=== PATIENT | female | born 1985 | race Two or more races ===

== ENCOUNTER 2020-06-26 21:56 | Inpatient (IN) | payer OTHER ==
[~2020-06-26] VITALS: Ht 157.5 cm; Wt 63.0 kg
--- NOTE | 2020-06-26 22:00 | NUR ---
Patient came in wih complaints of right sided weakness, hx of hypertension and diabetes
[2020-06-26] MEDS ORDERED: Labetalol 5mg/ml 20ml vial IV ONE (22:15)
[2020-06-26 22:21] LABS: EOSINOPHILS % (AUTO) 2.1 % (0.0-3.0); HEMATOCRIT 38.3 % (37.0-47.0); HEMOGLOBIN 12.4 G/DL (12.0-16.0); LYMPHOCYTES % (AUTO) 34.6 % (20.0-45.0); MEAN CORPUSCULAR VOLUME 91 FL (80-99); MONOCYTES % (AUTO) 4.4 % (1.0-10.0); PLATELET COUNT 334 K/UL (150-450); RED BLOOD COUNT 4.19 M/UL (4.20-5.40); WHITE BLOOD COUNT 10.2 K/UL (4.8-10.8)
--- NOTE | 2020-06-26 22:30 | NUR ---
ED Nurse Note: blood specimens sent to lab
[2020-06-26 22:34] LABS: ANION GAP 7 mmol/L (5-15); BLOOD UREA NITROGEN 44 mg/dL (7-18); CALCIUM 8.8 MG/DL (8.5-10.1); CARBON DIOXIDE 23 MMOL/L (21-32); CHLORIDE 102 MMOL/L (98-107); CREATININE 2.4 MG/DL (0.55-1.30); INR 0.9 (0.9-1.1); SODIUM 132 MMOL/L (136-145)
[2020-06-26 22:39] LABS: ALANINE AMINOTRANSFERASE 22 U/L (12-78); ALBUMIN 2.3 G/DL (3.4-5.0); ALBUMIN/GLOBULIN RATIO 0.5 (1.0-2.7); ALKALINE PHOSPHATASE 186 U/L (46-116); ASPARTATE AMINO TRANSFERASE 17 U/L (15-37); BILIRUBIN,TOTAL 0.1 MG/DL (0.2-1.0); CHOLESTEROL 383 MG/DL (< 200); HDL CHOLESTEROL 78 MG/DL (40-60); TRIGLYCERIDES 371 MG/DL (30-150)
--- NOTE | 2020-06-26 22:44 | Diagnostic Imaging Report ---
EXAM: CT Head Without Intravenous Contrast CLINICAL HISTORY: WEAK TECHNIQUE: Axial computed tomography images of the head/brain without intravenous contrast. CTDI is 53.4 mGy and DLP is 885.2 mGy-cm. One or more of the following dose reduction techniques were used: automated exposure control, adjustment of the mA and/or kV according to patient size, use of iterative reconstruction technique. COMPARISON: None. FINDINGS: Brain: Unremarkable. No hemorrhage. No significant white matter disease. No edema. Ventricles: Unremarkable. No ventriculomegaly. Bones/joints: Unremarkable. No acute fracture. Soft tissues: Unremarkable. Sinuses: Unremarkable as visualized. No acute sinusitis. Mastoid air cells: Unremarkable as visualized. No mastoid effusion. IMPRESSION: No acute intracranial process.
[2020-06-26 22:57] VITALS: BP 138/76
[2020-06-26] MEDS ORDERED: Aspirin Baby 81mg ORAL ONE (23:00)
--- NOTE | 2020-06-27 00:16 | Emergency Room Report ---
History of Present Illness General Chief Complaint: Stroke Symptoms Source: Patient Present Illness HPI Patient is a 35-year-old female presents for increased right-sided facial droop and facial numbness. Onset of symptoms earlier in the morning. Approximately 10 AM. Onset occurred approximately 12 hours prior to arrival. Prior history of diabetes and hypertension. Previous CVA in the past. Reports having been noncompliant with her antihypertensives. Denies any extremity weakness. Patient had been able to ambulate. 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 COVID-19 Screening: Negative COVID-19 Patient History Past Medical History: see triage record, DM, CVA/TIA Now: No Reviewed Nursing Documentation: PMH: Agreed; PSxH: Agreed Nursing Documentation-PMH Hx Hypertension: Yes - stroke 2016 Hx Diabetes: Yes Review of Systems All Other Systems: negative except mentioned in HPI Physical Exam Vital Signs Date Time Temp Pulse Resp B/P (MAP) Pulse Ox O2 Delivery O2 Flow Rate FiO2 06/26/20 22:03 98.4 125 20 214/113 (146) 100 Sp02 EP Interpretation: reviewed, normal General Appearance: normal inspection, well appearing, no apparent distress, alert, GCS 15, non-toxic Head: atraumatic ENT: normal ENT inspection, hearing grossly normal, normal voice Neck: normal inspection, full range of motion, supple, no bony tend Respiratory: normal inspection, lungs clear, normal breath sounds, no respiratory distress, no retraction, no wheezing Cardiovascular #1: regular rate, rhythm, no edema Gastrointestinal: normal inspection, normal bowel sounds, non tender, soft, no guarding, no hernia Genitourinary: no CVA tenderness Musculoskeletal: normal inspection, back normal, normal range of motion Neurologic: alert, motor strength/tone normal, religion professor III-XII nml as tested, oriented x3, responsive, speech normal, normal inspection, other - Facial motor weakness, some slight dysarthria. Psychiatric: normal inspection, judgement/insight normal, mood/affect normal Medical Decision Making Diagnostic Impression: Primary Impression: Hypertensive crisis Additional Impression: Transient ischemic attack ER Course She presents for increased facial weakness. Differential diagnosis include was not limited to hypertensive crisis, encephalopathy, CVA, Dorman's palsy among others. Because of complexity of patient's case laboratory tests and imaging studies were ordered. CT imaging of the head read by radiology showed no evidence of acute intracranial hemorrhage or CVA. Patient's blood pressure was noted to be initially markedly hypertensive. She was given IV labetalol with improvement in her blood pressure. She had resolution of facial symptoms after blood pressure was improved. Laboratory testing was notable for marked hyperglycemia. Patient was given aspirin. Dr. Silvana Brannon was contacted for inpatient management Labs Test 06/26/20 22:08 White Blood Count 10.2 K/UL (4.8-10.8) Red Blood Count 4.19 M/UL (4.20-5.40) Hemoglobin 12.4 G/DL (12.0-16.0) Hematocrit 38.3 % (37.0-47.0) Mean Corpuscular Volume 91 FL (80-99) Mean Corpuscular Hemoglobin 29.6 PG (27.0-31.0) Mean Corpuscular Hemoglobin Concent 32.3 G/DL (32.0-36.0) Red Cell Distribution Width 12.0 % (11.6-14.8) Platelet Count 334 K/UL (150-450) Mean Platelet Volume 10.3 FL (6.5-10.1) Neutrophils (%) (Auto) 58.0 % (45.0-75.0) Lymphocytes (%) (Auto) 34.6 % (20.0-45.0) Monocytes (%) (Auto) 4.4 % (1.0-10.0) Eosinophils (%) (Auto) 2.1 % (0.0-3.0) Basophils (%) (Auto) 1.0 % (0.0-2.0) Prothrombin Time 9.9 SEC (9.30-11.50) Prothromb Time International Ratio 0.9 (0.9-1.1) Activated Partial Thromboplast Time 26 SEC (23-33) Sodium Level 132 MMOL/L (136-145) Potassium Level 4.0 MMOL/L (3.5-5.1) Chloride Level 102 MMOL/L (98-107) Carbon Dioxide Level 23 MMOL/L (21-32) Anion Gap 7 mmol/L (5-15) Blood Urea Nitrogen 44 mg/dL (7-18) Creatinine 2.4 MG/DL (0.55-1.30) Estimat Glomerular Filtration Rate 23.1 mL/min (>60) Glucose Level 472 MG/DL (74-106) Calcium Level 8.8 MG/DL (8.5-10.1) Total Bilirubin 0.1 MG/DL (0.2-1.0) Aspartate Amino Transf (AST/SGOT) 17 U/L (15-37) Alanine Aminotransferase (ALT/SGPT) 22 U/L (12-78) Alkaline Phosphatase 186 U/L (46-116) Troponin I 0.000 ng/mL (0.000-0.056) Total Protein 7.1 G/DL (6.4-8.2) Albumin 2.3 G/DL (3.4-5.0) Globulin 4.8 g/dL Albumin/Globulin Ratio 0.5 (1.0-2.7) Triglycerides Level 371 MG/DL (30-150) Cholesterol Level 383 MG/DL (< 200) LDL Cholesterol 245 mg/dL (<100) HDL Cholesterol 78 MG/DL (40-60) Cholesterol/HDL Ratio 4.9 (3.3-4.4) EKG Diagnostic Results Rate: normal Rhythm: NSR ST Segments: no acute changes Last Vital Signs Date Time Temp Pulse Resp B/P (MAP) Pulse Ox O2 Delivery O2 Flow Rate FiO2 06/26/20 22:57 98.4 100 20 138/76 100 Status: improved Disposition: ADMITTED INPATIENT Condition: Stable Referrals: TERENCE PALM,REFERRING (PCP) Nathaniel De Jesus MD Jun 27, 2020 00:16
--- NOTE | 2020-06-27 00:30 | NUR ---
ED Nurse Note: Urine sent to lab
[2020-06-27 00:43] LABS: APPEARANCE,URINE CLEAR; BILIRUBIN, URINE NEGATIVE (NEGATIVE); COLOR,URINE PALE YELLOW; GLUCOSE, URINE (UA) 4+ (NEGATIVE); KETONES,URINE NEGATIVE (NEGATIVE); LEUKOCYTE ESTERASE ,URINE NEGATIVE (NEGATIVE); NITRITE,URINE NEGATIVE (NEGATIVE); PH,URINE 6.5 (4.5-8.0); PROTEIN,URINE 4+ (NEGATIVE); UROBILINOGEN,URINE NORMAL MG/DL (0.0-1.0)
--- NOTE | 2020-06-27 00:43 | NUR ---
TRANSFER TO FLOOR: Patient transferred to med surg/tele as ordered, per MD. Report given to Melanie MACIAS. Belongings left at patient's bedside, declined to send to safe
--- NOTE | 2020-06-27 01:15 | NUR ---
NURSE NOTES: Received report from GILBERTO Quintero. Pt is A/O x4 and verbally responsive. No SOB or acute distress notes. Pt has no pain at this time. Pt is ambulatory with steady gait. Pt states she feels better but a has a little nausea but declined medication. Pt's HX gone over and recorded. Inventory gone over with pt and asked pt to have money sent down to safe and declines states she will keep in her pocket with her DL and insurance card. Pt BP is stable at this time and will continue to monitor. Admitting orders obtained from Dr. Machado. Will continue plan of care.
--- NOTE | 2020-06-27 01:20 | NUR ---
NURSE NOTES: Pt placed on ekg monitor which shows ST of 107. Dr. Machado notified and was told if it got higher to call Dr. Hernandez which he added to the case.
[2020-06-27 04:00] VITALS: BP 113/75
[2020-06-27] MEDS: NovoLOG Insulin Flexpen SUBQ SCH ×8 (05:46→20:55)
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
--- NOTE | 2020-06-27 06:46 | NUR ---
NURSE HAND-OFF REPORT: Important Events on Shift:New Admit HTN Crisis. St evaluation today. Patient Status: Stable Diet: CCHO LOW Pending Orders: Pending Results/Labs: Pending MD notification: Latest Vital Signs: Temperature 98.6 , Pulse 96 , B/P 113 /75 , Respiratory Rate 20 , O2 SAT 98 , , O2 Flow Rate . Vital Sign Comment: EKG Rhythm: Sinus Tachycardia Rhythm change?: N MD Notified?: -Dr. Jeannette MCKEON Response: Latest Bell Fall Score: 20 Fall Risk: Low Risk Safety Measures: Call light Within Reach, Bed Alarm Zone 2, Side Rails Side Rails x2, Bed position Low and Locked. Fall Precautions: Patient Fall Education Report given to Adry.
--- NOTE | 2020-06-27 07:49 | NUR ---
NURSE NOTES: Report received from Melanie MACIAS. Patient seen on rounds, awake and up in bed eating breakfast. No c/o chest pain, not in distress. PIV on right AC patent and intact. Pt is ambulatory and continent. Bed low and locked, siderails up x2, call light placed within reach and instructed to call nurse for assistance. Will continue to monitor.
[2020-06-27 08:00] VITALS: BP 126/69
[2020-06-27] MEDS: Levemir Flexpen SUBQ SCH (08:58)
--- NOTE | 2020-06-27 11:00 | NUR ---
INSURANCE CLINICALS/REVIEW FAXED TO Deya PALM # [phone] fax#[phone]
[2020-06-27 11:01] LABS: ALANINE AMINOTRANSFERASE 18 U/L (12-78); ALBUMIN 1.9 G/DL (3.4-5.0); ALBUMIN/GLOBULIN RATIO 0.4 (1.0-2.7); ALKALINE PHOSPHATASE 155 U/L (46-116); ANION GAP 10 mmol/L (5-15); ASPARTATE AMINO TRANSFERASE 14 U/L (15-37); BILIRUBIN,TOTAL 0.1 MG/DL (0.2-1.0); BLOOD UREA NITROGEN 45 mg/dL (7-18); CALCIUM 8.1 MG/DL (8.5-10.1); CARBON DIOXIDE 21 MMOL/L (21-32); CHLORIDE 106 MMOL/L (98-107); CREATININE 1.9 MG/DL (0.55-1.30); GAMMA GLUTAMYL TRANSPEPTIDASE 113 U/L (5-85); PHOSPHORUS 2.7 MG/DL (2.5-4.9); POTASSIUM 4.2 MMOL/L (3.5-5.1); SODIUM 137 MMOL/L (136-145)
--- NOTE | 2020-06-27 11:11 | NUR ---
Speech Pathology Note (Bedside Dysphagia Evaluation) Brief Note: Ms. Torres is a 35 year old female history of TIA in 2016, HTN and DM was taken to ED on 06/26/2020 around 10 PM for acute onset of right side facial weakness and numbness and lingual numbness. The symptoms started around 10 AM on the same day. On arrival, She was found to be hypertensive (214/113) and tachycardia 125. The labs were remarkable for leukocytosis 10.2k, BUN/Creatine 44/2.4 Glucose 472, insetting of history of DM and HTN. CT head was negative for acute findings. The decision was made to admit for further work up and BP and sugar management. Findings: Ms. Torres is alert. She is oriented 4. She follows commands, and able to turn her head right to left and left to right. She was able to read clock on the wall. She was able to count 1-21 forward and back word. Her speech is clear. The right side of lower facial is noted to be weak. Her lingual is midline. She stated that she felt tongue thickness. The mucosa is clear and moist. She denied dysphagia, voice changes or speech changes. She denied nausea, vomiting or vertigo. Given her water with a straw, she demonstrated functional swallow. Interpretation: 1. Functional swallow 2. Functional speech and cognition 3. Functional voice Plan: 1. Regular diet and thin liquid Signed off from Speech/Swallow Service at this time. Roxy Monroe
--- NOTE | 2020-06-27 11:31 | Consultation ---
Consult Note Consult Note I am asked to evaluate the patient at the request of Dr. Brannon for renal failure Chief Complaint: Stroke Symptoms Patient is a 35-year-old female presents for increased right-sided facial droop and facial numbness. Onset of symptoms earlier in the morning. Approximately 10 AM. Onset occurred approximately 12 hours prior to arrival. Prior history of diabetes and hypertension. Previous CVA in the past. Reports having been noncompliant with her antihypertensives. Denies any extremity weakness. Patient had been able to ambulate. 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 HEAD AND NECK: Showed no JVD. LUNGS: Clear. CARDIOVASCULAR: Regular S1 and S2 with no gallop. ABDOMEN: Soft. EXTREMITIES: No pitting edema. LABORATORY AND DIAGNOSTIC DATA: EKG shows sinus tachycardia, rate of 104. Her labs show white count of 10.2, hemoglobin 12.4, hematocrit 38.3, and platelet count of 334. Sodium 137, potassium 4.2, BUN of 45, creatinine 1.9. Initial BUN was 44 and creatinine 2.5, glucose of 373. Troponin is negative. Triglyceride is 371. Cholesterol is 383 with LDL of 245. . Assessment/Plan Acute on chronic renal failure Diabetic nephropathy Hypertensive crisis Transient ischemic attack Hyperlipemia Slow hydration Kidney ultrasound Blood pressure medication Keep the blood sugar in check Lipitor, fish oil Monitor renal parameters and electrolytes Aspirin eSan Hare MD Jun 27, 2020 11:31
[2020-06-27 12:00] VITALS: BP 147/80
[2020-06-27] MEDS: Docusate 100mg cap ORAL SCH ×2 (12:12→18:00)
[2020-06-27] MEDS: Metoprolol Tartrate 12.5mg TAB ORAL SCH ×2 (12:12→20:52)
[2020-06-27] MEDS ORDERED: Varibar Honey 250ml MC PRN (14:15)
[2020-06-27] MEDS ORDERED: Varibar Pudding 230ml MC PRN (14:15)
[2020-06-27] MEDS ORDERED: Varibar Thin Liquid powder 148gm MC PRN (14:15)
[2020-06-27] MEDS ORDERED: Varibar Nectar 240ml MC PRN (14:15)
[2020-06-27] MEDS ORDERED: Gadavist 7.5mMol/7.5ml vial IV PRN (14:30)
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
--- NOTE | 2020-06-27 14:46 | Cardiac Electrophysiology PN ---
Subjective Subjective [id number] Objective Last 24 Hour Vital Signs Date Time Temp Pulse Resp B/P (MAP) Pulse Ox O2 Delivery O2 Flow Rate FiO2 06/27/20 12:12 100 147/80 06/27/20 09:00 Room Air 06/27/20 08:00 106 06/27/20 08:00 99.9 107 18 126/69 (88) 99 06/27/20 04:00 98.6 96 20 113/75 (88) 98 06/27/20 01:15 Room Air 06/27/20 01:15 104 06/27/20 00:46 98.4 100 20 134/72 100 06/26/20 22:57 98.4 100 20 138/76 100 06/26/20 22:23 125 214/113 06/26/20 22:03 98.4 125 20 214/113 (146) 100 Intake and Output 06/26/20 06/27/20 19:00 07:00 Intake Total 560 ml Balance 560 ml Intake Oral 560 ml # Voids 3 # Bowel Movements 1 Laboratory Tests Test 06/26/20 22:08 06/27/20 00:24 06/27/20 09:50 White Blood Count 10.2 K/UL (4.8-10.8) Red Blood Count 4.19 M/UL (4.20-5.40) L Hemoglobin 12.4 G/DL (12.0-16.0) Hematocrit 38.3 % (37.0-47.0) Mean Corpuscular Volume 91 FL (80-99) Mean Corpuscular Hemoglobin 29.6 PG (27.0-31.0) Mean Corpuscular Hemoglobin Concent 32.3 G/DL (32.0-36.0) Red Cell Distribution Width 12.0 % (11.6-14.8) Platelet Count 334 K/UL (150-450) Mean Platelet Volume 10.3 FL (6.5-10.1) H Neutrophils (%) (Auto) 58.0 % (45.0-75.0) Lymphocytes (%) (Auto) 34.6 % (20.0-45.0) Monocytes (%) (Auto) 4.4 % (1.0-10.0) Eosinophils (%) (Auto) 2.1 % (0.0-3.0) Basophils (%) (Auto) 1.0 % (0.0-2.0) Prothrombin Time 9.9 SEC (9.30-11.50) Prothromb Time International Ratio 0.9 (0.9-1.1) Activated Partial Thromboplast Time 26 SEC (23-33) Sodium Level 132 MMOL/L (136-145) L 137 MMOL/L (136-145) Potassium Level 4.0 MMOL/L (3.5-5.1) 4.2 MMOL/L (3.5-5.1) Chloride Level 102 MMOL/L (98-107) 106 MMOL/L (98-107) Carbon Dioxide Level 23 MMOL/L (21-32) 21 MMOL/L (21-32) Anion Gap 7 mmol/L (5-15) 10 mmol/L (5-15) Blood Urea Nitrogen 44 mg/dL (7-18) H 45 mg/dL (7-18) H Creatinine 2.4 MG/DL (0.55-1.30) H 1.9 MG/DL (0.55-1.30) H Estimat Glomerular Filtration Rate 23.1 mL/min (>60) 30.3 mL/min (>60) Glucose Level 472 MG/DL (74-106) H 373 MG/DL (74-106) #H Calcium Level 8.8 MG/DL (8.5-10.1) 8.1 MG/DL (8.5-10.1) L Total Bilirubin 0.1 MG/DL (0.2-1.0) L 0.1 MG/DL (0.2-1.0) L Aspartate Amino Transf (AST/SGOT) 17 U/L (15-37) 14 U/L (15-37) L Alanine Aminotransferase (ALT/SGPT) 22 U/L (12-78) 18 U/L (12-78) Alkaline Phosphatase 186 U/L (46-116) H 155 U/L (46-116) H Troponin I 0.000 ng/mL (0.000-0.056) Total Protein 7.1 G/DL (6.4-8.2) 6.2 G/DL (6.4-8.2) L Albumin 2.3 G/DL (3.4-5.0) L 1.9 G/DL (3.4-5.0) L Globulin 4.8 g/dL 4.3 g/dL Albumin/Globulin Ratio 0.5 (1.0-2.7) L 0.4 (1.0-2.7) L Triglycerides Level 371 MG/DL (30-150) H Cholesterol Level 383 MG/DL (< 200) H LDL Cholesterol 245 mg/dL (<100) H HDL Cholesterol 78 MG/DL (40-60) H Cholesterol/HDL Ratio 4.9 (3.3-4.4) H Urine Color Pale yellow Urine Appearance Clear Urine pH 6.5 (4.5-8.0) Urine Specific [place] 1.005 (1.005-1.035) Urine Protein 4+ (NEGATIVE) H Urine Glucose (UA) 4+ (NEGATIVE) H Urine Ketones Negative (NEGATIVE) Urine Blood 2+ (NEGATIVE) H Urine Nitrite Negative (NEGATIVE) Urine Bilirubin Negative (NEGATIVE) Urine Urobilinogen Normal MG/DL (0.0-1.0) Urine Leukocyte Esterase Negative (NEGATIVE) Urine RBC 2-4 /HPF (0 - 2) H Urine WBC 0-2 /HPF (0 - 2) Urine Squamous Epithelial Cells Few /LPF (NONE/OCC) Urine Bacteria None /HPF (NONE) Urine HCG, Qualitative Negative (NEGATIVE) Urine Opiates Screen Negative (NEGATIVE) Urine Barbiturates Screen Negative (NEGATIVE) Phencyclidine (PCP) Screen Negative (NEGATIVE) Urine Amphetamines Screen Negative (NEGATIVE) Urine Benzodiazepines Screen Negative (NEGATIVE) Urine Cocaine Screen Negative (NEGATIVE) Urine Marijuana (THC) Screen Negative (NEGATIVE) Hemoglobin A1c 11.4 % (4.3-6.0) H Uric Acid 5.3 MG/DL (2.6-7.2) Phosphorus Level 2.7 MG/DL (2.5-4.9) Magnesium Level 2.1 MG/DL (1.8-2.4) Gamma Glutamyl Transpeptidase 113 U/L (5-85) H C-Reactive Protein, Quantitative < 0.4 mg/dL (0.00-0.90) Pro-B-Type Natriuretic Peptide 146 pg/mL (0-125) H Thyroid Stimulating Hormone (TSH) 2.022 uiU/mL (0.358-3.740) Nestor Hernandez MD Jun 27, 2020 14:46
--- NOTE | 2020-06-27 14:50 | NUR ---
NURSE NOTES: Patient transferred down to radiology for MRI via wheelchair in stable condition.
--- NOTE | 2020-06-27 14:58 | Diagnostic Imaging Report ---
Indication: Acute renal failure Technique: Grayscale and duplex images of the kidneys, retroperitoneum, and bladder were obtained. Comparison: none Findings: Right kidney measures 9.7 cm in length. Left kidney measures 10.4 cm in length. Both kidneys demonstrate normal echogenicity. No hydronephrosis. No focal abnormality. Normal inferior vena cava. Bladder is normal. Impression: negative.
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
--- NOTE | 2020-06-27 19:10 | Diagnostic Imaging Report ---
Indications: Right facial numbness, right arm and leg weakness x3 days Technique: 3D [id number] images obtained through the [place] [facility] [place]. MIP reconstructions were generated in multiple rotational projections Comparison: Brain MRI performed at same time, CT brain 06/26/2020 Findings: Codominant bilateral vertebral arteries. Patent bilateral PICAs. Patent bilateral AICAs. 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 Patent bilateral superior cerebellar arteries. Patent nonstenotic bilateral posterior cerebral arteries. Small caliber patent posterior to indicating arteries are demonstrated. Patent nonstenotic bilateral distal internal carotid arteries. Patent nonstenotic bilateral anterior cerebral arteries. Patent nonstenotic bilateral middle cerebral arteries and proximal branches. No evidence of aneurysm or vascular malformation. Impression: Negative for evidence of proximal intracranial cerebrovascular insufficiency
--- NOTE | 2020-06-27 19:12 | NUR ---
NURSE NOTES: Received report from Adry MACIAS. Pt is A/O x4 and verbally responsive. No SOB or acute distress notes. Pt has no pain at this time. Pt is ambulatory with steady gait. No SOB or acute distress noted. No pain noted. Pt has IV site on RAC 20G which is running NS @ 50cc/hr. Bed in lowest position and locked with side rails x2. Call light placed within reach. Will continue plan of care.
--- NOTE | 2020-06-27 19:15 | Diagnostic Imaging Report ---
Indication: Reason For Exam: CVA Technique: sagittal T1 fast spin echo, axial T1 and T2 FLAIR PROPELLER, axial T2 FS PROPELLER, T2* GRE, axial diffusion weighted images, post contrast axial and coronal T1 FLAIR PROPELLER images. ADC and exponential ADC maps generated Comparison: Brain CT 06/26/2020 Findings: There is a prominent perivascular space versus tiny lacunar infarct in the genu of the right internal capsule.. No abnormal areas of restricted diffusion to suggest acute infarction. No acute hemorrhage or edema. No mass effect nor midline shift. No abnormal contrast enhancement. Normal size ventricles and extra axial CSF spaces. Visualized orbits and sinuses are unremarkable. . Impression: Negative for acute intracranial bleed, mass effect, acute infarct, or contrast enhancing lesion Prominent perivascular space versus old lacunar infarct in the genu of the right internal capsule
--- NOTE | 2020-06-27 19:20 | Diagnostic Imaging Report ---
Indication: Right facial numbness, right arm and leg weakness x3 days Technique: Axial 2-D [id number] images were obtained through the neck. Subsequently, coronal tricks acquisitions were obtained in multiple phases after IV administration of gadolinium contrast. 3-D MIP reconstructions were generated on an integrated workstation. Comparison: none Findings: Patent nonstenotic right brachiocephalic, common carotid, proximal internal carotid arteries. Patent nonstenotic right proximal subclavian, right vertebral, left proximal subclavian and left vertebral arteries. Patent nonstenotic left common and internal carotid arteries. Impression: Negative for evidence of significant extracranial cerebrovascular insufficiency Mild stenosis: Less than 50% diameter Moderate stenosis: 50-69% diameter Severe stenosis: 70+% diameter All stenosis measurements are based on NASCET criteria, using normal distal vessel diameter as the denominator
--- NOTE | 2020-06-27 19:32 | NUR ---
NURSE HAND-OFF REPORT: Important Events on Shift: Renal ultrasound, MRI brain, MRA neck/head done; Vduplex done; BP meds started Patient Status: Stable Diet: CCHO low Pending Orders: N Pending Results/Labs: Labs in AM Pending MD notification: N Latest Vital Signs: Temperature 99.1 , Pulse 100 , B/P 147 /80 , Respiratory Rate 20 , O2 SAT 99 , , O2 Flow Rate . Vital Sign Comment: EKG Rhythm: Sinus Tachycardia Rhythm change?: N MD Notified?: -Dr. Jeannette MCKEON Response: Latest Bell Fall Score: 20 Fall Risk: Low Risk Safety Measures: Call light Within Reach, Bed Alarm Zone 2, Side Rails Side Rails x2, Bed position Low and Locked. Fall Precautions: Patient Fall Education Report given to Melanie MACIAS.
[2020-06-27 20:00] VITALS: BP 139/84
[2020-06-27] MEDS: Atorvastatin 80mg tab ORAL SCH (20:52)
[2020-06-27] MEDS: Acetaminophen 500mg (ES) tab ORAL PRN (20:59)
[2020-06-27] MEDS ORDERED: Atorvastatin 20mg tab ORAL SCH (21:00)
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
[2020-06-28] VITALS: BP 140/78
[2020-06-28 04:00] VITALS: BP 124/78
[2020-06-28] MEDS: NovoLOG Insulin Flexpen SUBQ SCH ×6 (05:46→20:30)
--- NOTE | 2020-06-28 07:23 | NUR ---
CASE MANAGEMENT:REVIEW 06/28/20 SI: ACCELERATED HYPERTENSION. TIA 97.9 90 20 124/78 97% ON RA IS: IVF@0/HR ASA PO QD NORVASC PO QD LIPITOR PO QHS LOPRESSOR PO Q12 : TELEMETRY STATUS DCP: FROM HOME
--- NOTE | 2020-06-28 07:27 | NUR ---
DISCHARGE PLANNING PLAN IS FOR PATIENT TO RETURN HOME WILL NEED PRESCRIPTIONS FROM DR DUENAS
--- NOTE | 2020-06-28 07:31 | NUR ---
NURSE HAND-OFF REPORT: Important Events on Shift: Controlling BS and BP Patient Status: Stable Diet: CCHO LOw Pending Orders: Pending Results/Labs: Pending MD notification: Latest Vital Signs: Temperature 97.9 , Pulse 91 , B/P 124 /78 , Respiratory Rate 20 , O2 SAT 97 , , O2 Flow Rate . Vital Sign Comment: EKG Rhythm: Sinus Rhythm Rhythm change?: N MD Notified?: -Dr. Jeannette MCKEON Response: Latest Bell Fall Score: 20 Fall Risk: Low Risk Safety Measures: Call light Within Reach, Bed Alarm Zone 2, Side Rails Side Rails x2, Bed position Low and Locked. Fall Precautions: Patient Fall Education Report given to Olena.
--- NOTE | 2020-06-28 07:57 | NUR ---
NURSE NOTES: Received patient report from GILBERTO Navarro. Patient is AO x4 awake and able to make needs known. Patient shows no signs of distress or pain at the time. IV is intact and patent. There are no signs of erythema, infiltration, or bleeding. Patient is on room air and shows no signs of respiratory distress. Bed is in the lowest position, call light is within reach, side rails up x3. Will continue to monitor.
[2020-06-28 08:00] VITALS: BP 148/92
--- NOTE | 2020-06-28 09:11 | NUR ---
RD ASSESSMENT & RECOMMENDATIONS SEE CARE ACTIVITY FOR COMPLETE ASSESSMENT DAILY ESTIMATED NEEDS: Needs based on Diabetes, 51kg abw 25-30 kcals/kg 1686-5730 total kcals 1-1.3 g protein/kg 51-66 g total protein 25-30 mL/kg 8002-2431 total fluid mLs NUTRITION DIAGNOSIS: Altered nutrition related lab values R/T uncontrolled diabetes, accelerated HTN, altered lipid metabolism as evidenced by elev A1C 11.4, elev POC glu (238 256 238 353), elev BP (214/113 -> 124/78), elev triglyceride (371), elev cholesterol (383), elev LDL (245). CURRENT DIET:CCHO LOW PO DIET RECOMMENDATIONS: CCHO LOW, CARDIAC ADDITIONAL RECOMMENDATIONS: * Standing wt for accurate CBW * Monitor BGs closely, need for insulin re-adjustment (POC glu 200's-300's) * Diet education on diabetes provided * GERD diet education provided as well per pt request * Diet change as above (add Cardiac to diet-> low na, low fat, low cholest)
[2020-06-28] MEDS: Docusate 100mg cap ORAL SCH ×3 (09:25→17:53)
[2020-06-28] MEDS: Metoprolol Tartrate 12.5mg TAB ORAL SCH ×2 (09:26→20:21)
[2020-06-28] MEDS: Aspirin Baby 81mg ORAL SCH (09:26)
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
[2020-06-28] MEDS: Levemir Flexpen SUBQ SCH (09:33)
--- NOTE | 2020-06-28 10:20 | NUR ---
INSURANCE CLINICALS/REVIEW FAXED TO [facility]M # [phone] fax#[phone]
[2020-06-28 12:00] VITALS: BP 164/91
--- NOTE | 2020-06-28 12:03 | NUR ---
NURSE NOTES: Patients BP was 164/ 91 there are no PRN medications ordered. Let Dr. Hernandez know, awaiting response.
--- NOTE | 2020-06-28 12:13 | Nephrology Progress Note ---
Assessment/Plan Problem List: (1) Renal failure (ARF), acute on chronic (2) Diabetic nephropathy (3) Hypertensive kidney disease (4) Hyperlipemia Assessment Acute on chronic renal failure Diabetic nephropathy Hypertensive crisis Transient ischemic attack Hyperlipemia Plan June 28: Blood pressure better controlled. No CHEM panel today. Will check lab tomorrow. Continue per consultants. Slow hydration Kidney ultrasound Blood pressure medication Keep the blood sugar in check Lipitor, fish oil Monitor renal parameters and electrolytes Aspirin Subjective ROS Limited/Unobtainable: No Constitutional: Reports: malaise Objective Objective Last 24 Hour Vital Signs Date Time Temp Pulse Resp B/P (MAP) Pulse Ox O2 Delivery O2 Flow Rate FiO2 06/28/20 12:00 97.7 91 19 164/91 (115) 98 06/28/20 09:26 104 148/92 06/28/20 09:26 104 148/92 06/28/20 09:00 Room Air 06/28/20 08:00 107 06/28/20 08:00 97.9 104 18 148/92 (110) 96 06/28/20 04:00 97.9 91 20 124/78 (93) 97 06/28/20 04:00 90 06/28/20 00:00 85 06/28/20 00:00 97.5 85 20 140/78 (98) 98 06/27/20 21:00 Room Air 06/27/20 20:52 102 150/82 06/27/20 20:00 100 06/27/20 20:00 98.2 100 20 139/84 (102) 99 Intake and Output 06/27/20 06/28/20 19:00 07:00 Intake Total 450 ml 480 ml Balance 450 ml 480 ml Intake Oral 450 ml 480 ml # Voids 2 2 Current Medications Medications (Trade) Dose Ordered Sig/Augustine Route PRN Reason Start Time Stop Time Status Last Admin Dose Admin Acetaminophen (Tylenol) 500 mg Q4H PRN ORAL Mild Pain (Pain Scale 1-3) 06/27/20 01:30 07/27/20 01:29 06/27/20 20:59 Amlodipine Besylate (Norvasc) 5 mg DAILY ORAL 06/28/20 09:00 07/28/20 08:59 06/28/20 09:26 Aspirin (ASA) 81 mg DAILY ORAL 06/28/20 09:00 08/12/20 08:59 06/28/20 09:26 Atorvastatin Calcium (Lipitor) 80 mg BEDTIME ORAL 06/27/20 21:00 09/25/20 20:59 06/27/20 20:52 Barium Sulfate (Varibar Honey) 250 ml NOW PRN MC RAD 06/27/20 14:15 06/30/20 14:06 Barium Sulfate (Varibar Arroyo) 240 ml NOW PRN MC RAD 06/27/20 14:15 06/30/20 14:06 Barium Sulfate (Varibar Pudding) 230 ml NOW PRN MC RAD 06/27/20 14:15 06/30/20 14:06 Barium Sulfate (Varibar Thin Liquid powder) 148 gm NOW PRN MC RAD 06/27/20 14:15 06/30/20 14:06 Clonidine HCl (Catapres Tab) 0.1 mg Q2H PRN ORAL For High Blood Pressure 06/28/20 13:15 09/26/20 13:14 Dextrose (Dextrose 50%) 25 ml Q30M PRN IV Hypoglycemia 06/27/20 06:30 09/25/20 06:29 Dextrose (Dextrose 50%) 50 ml Q30M PRN IV Hypoglycemia 06/27/20 06:30 09/25/20 06:29 Docusate Sodium (Colace) 100 mg THREE TIMES A DAY ORAL 06/27/20 13:00 07/27/20 12:59 06/28/20 13:20 Fish Oil (Fish Oil) 1,000 mg BID ORAL 06/27/20 18:00 07/27/20 17:59 06/28/20 09:25 Gadobutrol (Gadavist) 7.5 mmol NOW PRN IV Radiology Procedure 06/27/20 14:30 07/01/20 14:29 Insulin Aspart (NovoLOG) BEFORE MEALS AND HS SUBQ 06/27/20 06:30 09/25/20 06:29 06/28/20 11:53 Insulin Aspart (NovoLOG) 5 units NOVOTIAC SUBQ 06/27/20 06:30 09/25/20 06:29 06/28/20 11:54 Insulin Detemir (Levemir) 15 units DAILY SUBQ 06/27/20 09:00 09/25/20 08:59 06/28/20 09:33 Metoprolol Tartrate (Lopressor) 12.5 mg Q12HR ORAL 06/27/20 11:45 09/25/20 11:44 06/28/20 09:26 Pantoprazole (Protonix) 40 mg EVERY 12 HOURS ORAL 06/27/20 21:00 07/27/20 20:59 06/28/20 09:26 Sodium Chloride 1,000 ml @ 50 mls/hr Q20H IV 06/27/20 11:45 07/27/20 11:44 06/28/20 09:25 Laboratory Tests 06/28/20 09:15: Erythrocyte Sedimentation Rate 99H, Troponin I 0.000, Pro-B-Type Natriuretic Peptide 141H, Anti-Nuclear Antibody Screen [Pending] Height (Feet): 5 Height (Inches): 2.00 Weight (Pounds): 139 General Appearance: no apparent distress, other - Feels better Cardiovascular: tachycardia Respiratory/Chest: decreased breath sounds Abdomen: distended Sean Hare MD Jun 28, 2020 12:13
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
--- NOTE | 2020-06-28 15:09 | Diagnostic Imaging Report ---
Indication: Bilateral leg pain Technique: Grayscale and duplex images of the bilateral lower extremity veins Comparison: none Findings: Bilaterally, grayscale and duplex images demonstrate no evidence of intraluminal thrombus. Normal phasic Doppler waveforms, demonstrating normal augmentation response and no evidence of valvular insufficiency. Greater saphenous vein(s) and tibial veins are patent. Normal compressibility. Impression: Negative for evidence of lower extremity deep venous thrombosis bilaterally
[2020-06-28 16:00] VITALS: BP 126/80
--- NOTE | 2020-06-28 18:58 | NUR ---
NURSE HAND-OFF REPORT: Important Events on Shift:[Monitor BP and blood glucose. ] Patient Status: [Full code] Diet: [CCHO Low] Pending Orders: [] Pending Results/Labs:[] Pending MD notification:[] Latest Vital Signs: Temperature 98.1 , Pulse 101 , B/P 126 /80 , Respiratory Rate 18 , O2 SAT 96 , , O2 Flow Rate . Vital Sign Comment: [] EKG Rhythm: Sinus Tachycardia Rhythm change?: N MD Notified?: -Dr. Jeannette MCKEON Response: Latest Bell Fall Score: 20 Fall Risk: Low Risk Safety Measures: Call light Within Reach, Bed Alarm Zone 2, Side Rails Side Rails x2, Bed position Low and Locked. Fall Precautions: Patient Fall Education Report given to [GILBERTO Fish].
--- NOTE | 2020-06-28 19:34 | NUR ---
NURSE NOTES: Received patient in bed, awake, alert, oriented x4, able to make her needs known, ambulatory with steady gate. IV site is clean dry and intact, on room air, will continue to monitor blood pressure, call light is within reach, bed is lowered, locked,alarm is on, will continue to monitor for comfort and safety.
[2020-06-28 20:00] VITALS: BP 126/81
[2020-06-28] MEDS: Atorvastatin 80mg tab ORAL SCH (20:21)
--- NOTE | 2020-06-28 21:12 | General Progress Note ---
Subjective ROS Limited/Unobtainable: Yes Allergies: Coded Allergies: No Known Allergies (Unverified , 06/26/20) Objective Last 24 Hour Vital Signs Date Time Temp Pulse Resp B/P (MAP) Pulse Ox O2 Delivery O2 Flow Rate FiO2 06/28/20 20:21 74 126/81 06/28/20 20:00 97.1 97 18 126/81 (96) 98 06/28/20 17:53 101 126/80 06/28/20 16:00 101 06/28/20 16:00 98.1 102 18 126/80 (95) 96 06/28/20 12:00 97.7 91 19 164/91 (115) 98 06/28/20 12:00 95 06/28/20 09:26 104 148/92 06/28/20 09:26 104 148/92 06/28/20 09:00 Room Air 06/28/20 08:00 107 06/28/20 08:00 97.9 104 18 148/92 (110) 96 06/28/20 04:00 97.9 91 20 124/78 (93) 97 06/28/20 04:00 90 06/28/20 00:00 85 06/28/20 00:00 97.5 85 20 140/78 (98) 98 Intake and Output 06/27/20 06/28/20 19:00 07:00 Intake Total 450 ml 480 ml Balance 450 ml 480 ml Intake Oral 450 ml 480 ml # Voids 2 2 Laboratory Tests 06/28/20 09:15: Erythrocyte Sedimentation Rate 99H, Troponin I 0.000, Pro-B-Type Natriuretic Peptide 141H, Anti-Nuclear Antibody Screen [Pending] Height (Feet): 5 Height (Inches): 2.00 Weight (Pounds): 139 Assessment/Plan Problem List: (1) Hypertensive crisis ICD Codes: I16.9 - Hypertensive crisis, unspecified SNOMED: 927815600 (2) Transient ischemic attack ICD Codes: G45.9 - Transient cerebral ischemic attack, unspecified SNOMED: 849170999 (3) Hypertensive kidney disease ICD Codes: I12.9 - Hypertensive chronic kidney disease with stage 1 through stage 4 chronic kidney disease, or unspecified chronic kidney disease SNOMED: 54514615 (4) Hyperlipemia ICD Codes: E78.5 - Hyperlipidemia, unspecified SNOMED: 79513886 (5) Renal failure (ARF), acute on chronic ICD Codes: N17.9 - Acute kidney failure, unspecified; N18.9 - Chronic kidney disease, unspecified SNOMED: 634304327 Status: progressing Assessment/Plan: hypertensive crisis bp is improving uncontrolled diabetes is improving r/o tia Silvana Machado MD Jun 28, 2020 21:12
[2020-06-29 00:18] VITALS: BP_SYST 105
[2020-06-29 04:51] VITALS: BP 100/54
[2020-06-29] MEDS: NovoLOG Insulin Flexpen SUBQ SCH ×7 (05:24→21:00)
--- NOTE | 2020-06-29 06:55 | NUR ---
NURSE HAND-OFF REPORT: Important Events on Shift: uneventful. BS in am 318, coverage provided. Patient Status: full code Diet: CCHO low Pending Orders: Pending Results/Labs: Pending MD notification: Latest Vital Signs: Temperature 97.8 , Pulse 77 , B/P 100 /54 , Respiratory Rate 18 , O2 SAT 98 , , O2 Flow Rate . Vital Sign Comment: EKG Rhythm: Sinus Rhythm Rhythm change?: N MD Notified?: -Dr. Jeannette MCKEON Response: Latest Bell Fall Score: 20 Fall Risk: Low Risk Safety Measures: Call light Within Reach, Bed Alarm Zone 2, Side Rails Side Rails x2, Bed position Low and Locked. Fall Precautions: Patient Fall Education Report given to Olena MACIAS
--- NOTE | 2020-06-29 07:40 | NUR ---
CASE MANAGEMENT:REVIEW 06/29/20 SI: ACCELERATED HYPERTENSION. TIA 97.8 77 18 100/54 98% ON RA IS: IVF@50/HR ASA PO QD NORVASC PO QD PROTONIX PO Q12 FISH OIL BID LIPITOR PO QHS LOPRESSOR PO Q12 SS INSULIN AC+HS : TELEMETRY STATUS DCP: FROM HOME PLAN: MONITOR BP EXTREMES
[2020-06-29 08:00] VITALS: BP 145/81
[2020-06-29] MEDS: Docusate 100mg cap ORAL SCH ×3 (08:31→18:00)
[2020-06-29] MEDS: Aspirin Baby 81mg ORAL SCH (08:32)
[2020-06-29] MEDS: Metoprolol Tartrate 12.5mg TAB ORAL SCH ×2 (08:32→21:13)
[2020-06-29] MEDS: Levemir Flexpen SUBQ SCH (08:33)
[2020-06-29 09:06] LABS: BASOPHILS % (AUTO) 0.9 % (0.0-2.0); EOSINOPHILS % (AUTO) 2.1 % (0.0-3.0); HEMOGLOBIN 11.4 G/DL (12.0-16.0); MEAN CORPUSCULAR VOLUME 89 FL (80-99); MONOCYTES % (AUTO) 4.1 % (1.0-10.0); NEUTROPHILS % (AUTO) 66.9 % (45.0-75.0); PLATELET COUNT 318 K/UL (150-450); RED BLOOD COUNT 3.91 M/UL (4.20-5.40); RED CELL DISTRIBUTION WIDTH 11.8 % (11.6-14.8); WHITE BLOOD COUNT 8.2 K/UL (4.8-10.8)
[2020-06-29 09:36] LABS: CREATINE KINASE 64 U/L (26-308)
[2020-06-29 09:47] LABS: ALANINE AMINOTRANSFERASE 17 U/L (12-78); ALBUMIN 1.8 G/DL (3.4-5.0); ALBUMIN/GLOBULIN RATIO 0.4 (1.0-2.7); ALKALINE PHOSPHATASE 154 U/L (46-116); ANION GAP 11 mmol/L (5-15); ASPARTATE AMINO TRANSFERASE 15 U/L (15-37); BILIRUBIN,TOTAL 0.2 MG/DL (0.2-1.0); BLOOD UREA NITROGEN 35 mg/dL (7-18); CALCIUM 8.1 MG/DL (8.5-10.1); CARBON DIOXIDE 20 MMOL/L (21-32); CHLORIDE 110 MMOL/L (98-107); CHOLESTEROL 311 MG/DL (< 200); CREATININE 2.1 MG/DL (0.55-1.30); HDL CHOLESTEROL 63 MG/DL (40-60); PHOSPHORUS 2.8 MG/DL (2.5-4.9); SODIUM 141 MMOL/L (136-145); TRIGLYCERIDES 312 MG/DL (30-150)
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
[2020-06-29 12:00] VITALS: BP 135/91
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
--- NOTE | 2020-06-29 13:31 | Nephrology Progress Note ---
Assessment/Plan Problem List: (1) Renal failure (ARF), acute on chronic (2) Diabetic nephropathy (3) Hypertensive kidney disease (4) Hyperlipemia Assessment Acute on chronic renal failure Diabetic nephropathy Hypertensive crisis Transient ischemic attack Hyperlipemia Plan June 29: Serum creatinine two-point. High cholesterol and triglycerides persist. Continue per current management. Blood pressure controlled. June 28: Blood pressure better controlled. No CHEM panel today. Will check lab tomorrow. Continue per consultants. Slow hydration Kidney ultrasound Blood pressure medication Keep the blood sugar in check Lipitor, fish oil Monitor renal parameters and electrolytes Aspirin Subjective ROS Limited/Unobtainable: No Constitutional: Reports: malaise Objective Objective Last 24 Hour Vital Signs Date Time Temp Pulse Resp B/P (MAP) Pulse Ox O2 Delivery O2 Flow Rate FiO2 06/29/20 09:00 Room Air 06/29/20 08:32 97 145/81 06/29/20 08:31 97 145/81 06/29/20 08:00 101 06/29/20 08:00 96.6 97 18 145/81 (102) 98 06/29/20 04:51 97.8 77 18 100/54 (69) 98 06/29/20 04:45 91 06/29/20 00:18 98.6 74 18 105/ 96 06/28/20 22:06 110 06/28/20 21:18 Room Air 06/28/20 20:21 74 126/81 06/28/20 20:00 97.1 97 18 126/81 (96) 98 06/28/20 17:53 101 126/80 06/28/20 16:00 101 06/28/20 16:00 98.1 102 18 126/80 (95) 96 Intake and Output 06/28/20 06/29/20 19:00 07:00 Intake Total 350 ml Balance 350 ml Intake Oral 350 ml # Voids 3 Current Medications Medications (Trade) Dose Ordered Sig/Augustine Route PRN Reason Start Time Stop Time Status Last Admin Dose Admin Acetaminophen (Tylenol) 500 mg Q4H PRN ORAL Mild Pain (Pain Scale 1-3) 06/27/20 01:30 07/27/20 01:29 06/27/20 20:59 Amlodipine Besylate (Norvasc) 5 mg BID ORAL 06/28/20 18:00 07/28/20 08:59 06/29/20 08:31 Aspirin (ASA) 81 mg DAILY ORAL 06/28/20 09:00 08/12/20 08:59 06/29/20 08:32 Atorvastatin Calcium (Lipitor) 80 mg BEDTIME ORAL 06/27/20 21:00 09/25/20 20:59 06/28/20 20:21 Barium Sulfate (Varibar Honey) 250 ml NOW PRN MC RAD 06/27/20 14:15 06/30/20 14:06 Barium Sulfate (Varibar [place]) 240 ml NOW PRN MC RAD 06/27/20 14:15 06/30/20 14:06 Barium Sulfate (Varibar Pudding) 230 ml NOW PRN MC RAD 06/27/20 14:15 06/30/20 14:06 Barium Sulfate (Varibar Thin Liquid powder) 148 gm NOW PRN MC RAD 06/27/20 14:15 06/30/20 14:06 Clonidine HCl (Catapres Tab) 0.1 mg Q2H PRN ORAL For High Blood Pressure 06/28/20 13:15 09/26/20 13:14 Dextrose (Dextrose 50%) 25 ml Q30M PRN IV Hypoglycemia 06/27/20 06:30 09/25/20 06:29 Dextrose (Dextrose 50%) 50 ml Q30M PRN IV Hypoglycemia 06/27/20 06:30 09/25/20 06:29 Docusate Sodium (Colace) 100 mg THREE TIMES A DAY ORAL 06/27/20 13:00 07/27/20 12:59 06/29/20 13:07 Fish Oil (Fish Oil) 1,000 mg BID ORAL 06/27/20 18:00 07/27/20 17:59 06/29/20 08:32 Gadobutrol (Gadavist) 7.5 mmol NOW PRN IV Radiology Procedure 06/27/20 14:30 07/01/20 14:29 Insulin Aspart (NovoLOG) BEFORE MEALS AND HS SUBQ 06/27/20 06:30 09/25/20 06:29 06/29/20 13:09 Insulin Aspart (NovoLOG) 10 units NOVOTIAC SUBQ 06/29/20 11:50 09/25/20 06:29 06/29/20 13:10 Insulin Detemir (Levemir) 25 units DAILY SUBQ 06/29/20 09:00 09/25/20 08:59 06/29/20 08:33 Metoprolol Tartrate (Lopressor) 12.5 mg Q12HR ORAL 06/27/20 11:45 09/25/20 11:44 06/29/20 08:32 Pantoprazole (Protonix) 40 mg EVERY 12 HOURS ORAL 06/27/20 21:00 07/27/20 20:59 06/29/20 08:32 Sodium Chloride 1,000 ml @ 50 mls/hr Q20H IV 06/27/20 11:45 07/27/20 11:44 06/29/20 03:45 Laboratory Tests 06/29/20 08:19: White Blood Count 8.2, Red Blood Count 3.91L, Hemoglobin 11.4L, Hematocrit 35.0L , Mean Corpuscular Volume 89, Mean Corpuscular Hemoglobin 29.3, Mean Corpuscular Hemoglobin Concent 32.7, Red Cell Distribution Width 11.8, Platelet Count 318, Mean Platelet Volume 10.3H, Neutrophils (%) (Auto) 66.9, Lymphocytes (%) (Auto) 26.0, Monocytes (%) (Auto) 4.1, Eosinophils (%) (Auto) 2.1, Basophils (%) (Auto) 0.9, Sodium Level 141, Potassium Level 4.0, Chloride Level 110H, Carbon Dioxide Level 20L, Anion Gap 11, Blood Urea Nitrogen 35H, Creatinine 2.1H, Estimat Glomerular Filtration Rate 26.9, Glucose Level 243H, Uric Acid 5.1, Calcium Level 8.1L, Phosphorus Level 2.8, Magnesium Level 2.0, Total Bilirubin 0.2, Aspartate Amino Transf (AST/SGOT) 15, Alanine Aminotransferase (ALT/SGPT) 17, Alkaline Phosphatase 154H, Total Creatine Kinase 64, C-Reactive Protein, Quantitative < 0.4, Total Protein 6.2L, Albumin 1.8L, Globulin 4.4, Albumin/Globulin Ratio 0.4L, Triglycerides Level 312H, Cholesterol Level 311H, LDL Cholesterol 193H, HDL Cholesterol 63H, Cholesterol/HDL Ratio 4.9H Height (Feet): 5 Height (Inches): 2.00 Weight (Pounds): 139 General Appearance: no apparent distress, other - Feels better Cardiovascular: tachycardia Respiratory/Chest: decreased breath sounds Abdomen: soft Fouladian,Sean MD Jun 29, 2020 13:31
--- NOTE | 2020-06-29 14:18 | NUR ---
INSURANCE CLINICALS/REVIEW FAXED TO [facility] PALM # [phone] fax#[phone]
--- NOTE | 2020-06-29 15:08 | Cardiology Report ---
APPROVED REPORT EKG Measurement Heart [id number] MS [id number] <Conclusion> Sinus tachycardia Otherwise normal ECG
[2020-06-29 16:00] VITALS: BP 128/72
--- NOTE | 2020-06-29 19:30 | NUR ---
NURSE HAND-OFF REPORT: Important Events on Shift:[NA] Patient Status: [Full code] Diet: [CCHO low] Pending Orders: [] Pending Results/Labs:[] Pending MD notification:[] Latest Vital Signs: Temperature 98.6 , Pulse 96 , B/P 128 /72 , Respiratory Rate 20 , O2 SAT 100 , , O2 Flow Rate . Vital Sign Comment: [] EKG Rhythm: Sinus Rhythm Rhythm change?: N MD Notified?: -Dr. Jeannette MCKEON Response: Latest Bell Fall Score: 20 Fall Risk: Low Risk Safety Measures: Call light Within Reach, Bed Alarm Zone 2, Side Rails Side Rails x2, Bed position Low and Locked. Fall Precautions: Patient Fall Education Report given to [GILBERTO Broderick].
--- NOTE | 2020-06-29 19:35 | NUR ---
NURSE NOTES: The patient is alert and oriented x4 and is able to ambulate to the bathroom with a steady gait.She is room air with Resp even and unlabored.The patient is cooperative with her care and was noted with a Right AC 18g IV line running NS @ 50 ml/hr well tolerated.The is no evidence of SOB or acute distress noted at this time. The bed in low level and call light within easy reach. Will continue to monitor as indicated
[2020-06-29 20:00] VITALS: BP 139/82
--- NOTE | 2020-06-29 21:01 | General Progress Note ---
Subjective ROS Limited/Unobtainable: Yes Allergies: Coded Allergies: No Known Allergies (Unverified , 06/26/20) Objective Last 24 Hour Vital Signs Date Time Temp Pulse Resp B/P (MAP) Pulse Ox O2 Delivery O2 Flow Rate FiO2 06/29/20 20:00 98.7 95 18 139/82 (101) 99 06/29/20 18:10 96 128/72 06/29/20 16:00 98.6 94 20 128/72 (90) 100 06/29/20 16:00 96 06/29/20 12:00 98.7 81 19 135/91 (106) 96 06/29/20 12:00 90 06/29/20 09:00 Room Air 06/29/20 08:32 97 145/81 06/29/20 08:31 97 145/81 06/29/20 08:00 101 06/29/20 08:00 96.6 97 18 145/81 (102) 98 06/29/20 04:51 97.8 77 18 100/54 (69) 98 06/29/20 04:45 91 06/29/20 00:18 98.6 74 18 105/ 96 06/28/20 22:06 110 06/28/20 21:18 Room Air Intake and Output 06/28/20 06/29/20 19:00 07:00 Intake Total 350 ml Balance 350 ml Intake Oral 350 ml # Voids 3 Laboratory Tests 06/29/20 08:19: White Blood Count 8.2, Red Blood Count 3.91L, Hemoglobin 11.4L, Hematocrit 35.0L , Mean Corpuscular Volume 89, Mean Corpuscular Hemoglobin 29.3, Mean Corpuscular Hemoglobin Concent 32.7, Red Cell Distribution Width 11.8, Platelet Count 318, Mean Platelet Volume 10.3H, Neutrophils (%) (Auto) 66.9, Lymphocytes (%) (Auto) 26.0, Monocytes (%) (Auto) 4.1, Eosinophils (%) (Auto) 2.1, Basophils (%) (Auto) 0.9, Sodium Level 141, Potassium Level 4.0, Chloride Level 110H, Carbon Dioxide Level 20L, Anion Gap 11, Blood Urea Nitrogen 35H, Creatinine 2.1H, Estimat Glomerular Filtration Rate 26.9, Glucose Level 243H, Uric Acid 5.1, Calcium Level 8.1L, Phosphorus Level 2.8, Magnesium Level 2.0, Total Bilirubin 0.2, Aspartate Amino Transf (AST/SGOT) 15, Alanine Aminotransferase (ALT/SGPT) 17, Alkaline Phosphatase 154H, Total Creatine Kinase 64, C-Reactive Protein, Quantitative < 0.4, Total Protein 6.2L, Albumin 1.8L, Globulin 4.4, Albumin/Globulin Ratio 0.4L, Triglycerides Level 312H, Cholesterol Level 311H, LDL Cholesterol 193H, HDL Cholesterol 63H, Cholesterol/HDL Ratio 4.9H Height (Feet): 5 Height (Inches): 2.00 Weight (Pounds): 139 Assessment/Plan Problem List: (1) Hypertensive crisis ICD Codes: I16.9 - Hypertensive crisis, unspecified SNOMED: 810314752 (2) Transient ischemic attack ICD Codes: G45.9 - Transient cerebral ischemic attack, unspecified SNOMED: 900081643 (3) Hypertensive kidney disease ICD Codes: I12.9 - Hypertensive chronic kidney disease with stage 1 through stage 4 chronic kidney disease, or unspecified chronic kidney disease SNOMED: 36625206 (4) Hyperlipemia ICD Codes: E78.5 - Hyperlipidemia, unspecified SNOMED: 32298855 (5) Renal failure (ARF), acute on chronic ICD Codes: N17.9 - Acute kidney failure, unspecified; N18.9 - Chronic kidney disease, unspecified SNOMED: [id number] Status: progressing Assessment/Plan: no paresthesia check vitals afebrile bp improved uncontrolled diabetes is improving r/o tia Silvana Machado MD Jun 29, 2020 21:01
[2020-06-29] MEDS: Atorvastatin 80mg tab ORAL SCH (21:13)
[2020-06-30] VITALS: BP 98/57
[2020-06-30 04:00] VITALS: BP 126/74
[2020-06-30] MEDS: NovoLOG Insulin Flexpen SUBQ SCH ×7 (06:41→21:14)
--- NOTE | 2020-06-30 06:48 | NUR ---
NURSE HAND-OFF REPORT: Important Events on Shift:Alert and stable Patient Status: Diet: Pending Orders: Pending Results/Labs: Pending MD notification: Latest Vital Signs: Temperature 98.7 , Pulse 85 , B/P 126 /74 , Respiratory Rate 18 , O2 SAT 98 , , O2 Flow Rate . Vital Sign Comment: EKG Rhythm: Sinus Rhythm Rhythm change?: N MD Notified?: -Dr. Jeannette MCKEON Response: Latest Bell Fall Score: 20 Fall Risk: Low Risk Safety Measures: Call light Within Reach, Bed Alarm Zone 2, Side Rails Side Rails x2, Bed position Low and Locked. Fall Precautions: Patient Fall Education Report given to .
--- NOTE | 2020-06-30 07:43 | NUR ---
NURSE NOTES: Patient received from GILBERTO Broderick. Pt is awake, alert and oriented x 4, no SOB, denies any pain at this time, bed in lowest position with breaks engaged, on room air, IV line and bus monitor present, will continue to monitor and proceed with plan of care, call light within reach.
[2020-06-30 08:00] VITALS: BP 125/80
[2020-06-30] MEDS: Docusate 100mg cap ORAL SCH ×3 (08:25→17:05)
[2020-06-30] MEDS: Aspirin Baby 81mg ORAL SCH (08:26)
[2020-06-30] MEDS: Levemir Flexpen SUBQ SCH (08:31)
[2020-06-30] MEDS: Metoprolol Tartrate 12.5mg TAB ORAL SCH (08:32)
[2020-06-30 09:04] LABS: BASOPHILS % (AUTO) 0.7 % (0.0-2.0); EOSINOPHILS % (AUTO) 1.8 % (0.0-3.0); HEMATOCRIT 33.1 % (37.0-47.0); HEMOGLOBIN 10.7 G/DL (12.0-16.0); LYMPHOCYTES % (AUTO) 23.1 % (20.0-45.0); MEAN CORPUSCULAR VOLUME 90 FL (80-99); NEUTROPHILS % (AUTO) 70.3 % (45.0-75.0); PLATELET COUNT 305 K/UL (150-450); RED BLOOD COUNT 3.66 M/UL (4.20-5.40); RED CELL DISTRIBUTION WIDTH 12.2 % (11.6-14.8); WHITE BLOOD COUNT 9.7 K/UL (4.8-10.8)
[2020-06-30 10:05] LABS: ALBUMIN 1.7 G/DL (3.4-5.0); ALBUMIN/GLOBULIN RATIO 0.4 (1.0-2.7); BILIRUBIN,TOTAL 0.2 MG/DL (0.2-1.0); CALCIUM 8.5 MG/DL (8.5-10.1); CREATININE 2.2 MG/DL (0.55-1.30); PHOSPHORUS 2.9 MG/DL (2.5-4.9)
[2020-06-30 10:10] LABS: POTASSIUM 4.5 MMOL/L (3.5-5.1)
[2020-06-30 12:00] VITALS: BP 151/91
--- NOTE | 2020-06-30 13:07 | Nephrology Progress Note ---
Assessment/Plan Problem List: (1) Renal failure (ARF), acute on chronic (2) Diabetic nephropathy (3) Hypertensive kidney disease (4) Hyperlipemia Assessment Acute on chronic renal failure Diabetic nephropathy Hypertensive crisis Transient ischemic attack Hyperlipemia Plan June 30. Serum creatinine 2.2. IV fluids stopped. Lopressor dose increased. Continue as is. June 29: Serum creatinine 2.1. High cholesterol and triglycerides persist. Continue per current management. Blood pressure controlled. June 28: Blood pressure better controlled. No CHEM panel today. Will check lab tomorrow. Continue per consultants. Slow hydration Kidney ultrasound Blood pressure medication Keep the blood sugar in check Lipitor, fish oil Monitor renal parameters and electrolytes Aspirin Subjective ROS Limited/Unobtainable: No Constitutional: Reports: malaise Objective Objective Last 24 Hour Vital Signs Date Time Temp Pulse Resp B/P (MAP) Pulse Ox O2 Delivery O2 Flow Rate FiO2 06/30/20 12:00 108 06/30/20 12:00 97.7 110 18 151/91 (111) 97 06/30/20 09:00 Room Air 06/30/20 08:32 96 125/80 06/30/20 08:26 96 125/80 06/30/20 08:00 109 06/30/20 08:00 98.1 96 18 125/80 (95) 96 06/30/20 04:00 98.7 91 18 126/74 (91) 98 06/30/20 04:00 85 06/30/20 00:00 98.1 97 18 98/57 (71) 98 06/30/20 00:00 89 06/29/20 21:13 95 139/82 06/29/20 21:00 Room Air 06/29/20 20:00 98.7 95 18 139/82 (101) 99 06/29/20 20:00 100 06/29/20 18:10 96 128/72 06/29/20 16:00 98.6 94 20 128/72 (90) 100 06/29/20 16:00 96 Intake and Output 06/29/20 06/30/20 19:00 07:00 Intake Total 500 ml 820 ml Balance 500 ml 820 ml Intake Oral 450 ml 320 ml IV Total 50 ml 500 ml # Voids 3 3 # Bowel Movements 1 Current Medications Medications (Trade) Dose Ordered Sig/Augustine Route PRN Reason Start Time Stop Time Status Last Admin Dose Admin Acetaminophen (Tylenol) 500 mg Q4H PRN ORAL Mild Pain (Pain Scale 1-3) 06/27/20 01:30 07/27/20 01:29 06/27/20 20:59 Amlodipine Besylate (Norvasc) 5 mg BID ORAL 06/28/20 18:00 07/28/20 08:59 06/30/20 08:26 Aspirin (ASA) 81 mg DAILY ORAL 06/28/20 09:00 08/12/20 08:59 06/30/20 08:26 Atorvastatin Calcium (Lipitor) 80 mg BEDTIME ORAL 06/27/20 21:00 09/25/20 20:59 06/29/20 21:13 Barium Sulfate (Varibar Honey) 250 ml NOW PRN MC RAD 06/27/20 14:15 06/30/20 14:06 Barium Sulfate (Varibar [place]) 240 ml NOW PRN MC RAD 06/27/20 14:15 06/30/20 14:06 Barium Sulfate (Varibar Pudding) 230 ml NOW PRN MC RAD 06/27/20 14:15 06/30/20 14:06 Barium Sulfate (Varibar Thin Liquid powder) 148 gm NOW PRN MC RAD 06/27/20 14:15 06/30/20 14:06 Clonidine HCl (Catapres Tab) 0.1 mg Q2H PRN ORAL For High Blood Pressure 06/28/20 13:15 09/26/20 13:14 Dextrose (Dextrose 50%) 25 ml Q30M PRN IV Hypoglycemia 06/27/20 06:30 09/25/20 06:29 Dextrose (Dextrose 50%) 50 ml Q30M PRN IV Hypoglycemia 06/27/20 06:30 09/25/20 06:29 Docusate Sodium (Colace) 100 mg THREE TIMES A DAY ORAL 06/27/20 13:00 07/27/20 12:59 06/30/20 08:25 Fish Oil (Fish Oil) 1,000 mg BID ORAL 06/27/20 18:00 07/27/20 17:59 06/30/20 08:25 Gadobutrol (Gadavist) 7.5 mmol NOW PRN IV Radiology Procedure 06/27/20 14:30 07/01/20 14:29 Insulin Aspart (NovoLOG) BEFORE MEALS AND HS SUBQ 06/27/20 06:30 09/25/20 06:29 06/30/20 11:47 Insulin Aspart (NovoLOG) 10 units NOVOTIAC SUBQ 06/29/20 11:50 09/25/20 06:29 06/30/20 11:48 Insulin Detemir (Levemir) 25 units DAILY SUBQ 06/29/20 09:00 09/25/20 08:59 06/30/20 08:31 Metoprolol Tartrate (Lopressor) 12.5 mg Q12HR ORAL 06/27/20 11:45 09/25/20 11:44 06/30/20 08:32 Pantoprazole (Protonix) 40 mg EVERY 12 HOURS ORAL 06/27/20 21:00 07/27/20 20:59 06/30/20 08:26 Laboratory Tests 06/30/20 08:50: White Blood Count 9.7, Red Blood Count 3.66L, Hemoglobin 10.7L, Hematocrit 33.1L , Mean Corpuscular Volume 90, Mean Corpuscular Hemoglobin 29.2, Mean Corpuscular Hemoglobin Concent 32.4, Red Cell Distribution Width 12.2, Platelet Count 305, Mean Platelet Volume 10.2H, Neutrophils (%) (Auto) 70.3, Lymphocytes (%) (Auto) 23.1, Monocytes (%) (Auto) 4.0, Eosinophils (%) (Auto) 1.8, Basophils (%) (Auto) 0.7, Sodium Level 138, Potassium Level 4.5, Chloride Level 112H, Carbon Dioxide Level 17L, Anion Gap 9, Blood Urea Nitrogen 44H, Creatinine 2.2H, Estimat Glomerular Filtration Rate 25.5, Glucose Level 313H, Calcium Level 8.5, Phosphorus Level 2.9, Total Bilirubin 0.2, Aspartate Amino Transf (AST/SGOT) 18, Alanine Aminotransferase (ALT/SGPT) 20, Alkaline Phosphatase 160H, Total Protein 5.9L, Albumin 1.7L, Globulin 4.2, Albumin/Globulin Ratio 0.4L Height (Feet): 5 Height (Inches): 2.00 Weight (Pounds): 139 General Appearance: no apparent distress Cardiovascular: tachycardia Respiratory/Chest: decreased breath sounds Abdomen: soft Sean Hare MD Jun 30, 2020 13:06
[2020-06-30] MEDS ORDERED: SIMVASTATIN40 MG ORAL (13:44)
[2020-06-30] MEDS ORDERED: LISINOPRIL40 MG ORAL (13:44)
[2020-06-30] MEDS ORDERED: HUMULIN R100 UNIT/1 SUBQ (13:44)
[2020-06-30] MEDS ORDERED: FUROSEMIDE40 MG ORAL (13:44)
--- NOTE | 2020-06-30 15:20 | General Progress Note ---
Subjective Allergies: Coded Allergies: No Known Allergies (Unverified , 06/26/20) All Systems: reviewed and negative except above Subjective events noted interval notes reviewed anxious to go home glucose values improved but still elevated Item Value Date Time Bedside Blood Glucose 280 mg/dl H 06/30/20 1148 Bedside Blood Glucose 301 mg/dl H 06/30/20 0831 Bedside Blood Glucose 298 mg/dl H 06/30/20 0642 Bedside Blood Glucose 91 mg/dl 06/29/20 2100 Bedside Blood Glucose 152 mg/dl H 06/29/20 1633 Bedside Blood Glucose 243 mg/dl H 06/29/20 1310 Objective Last 24 Hour Vital Signs Date Time Temp Pulse Resp B/P (MAP) Pulse Ox O2 Delivery O2 Flow Rate FiO2 06/30/20 12:00 108 06/30/20 12:00 97.7 110 18 151/91 (111) 97 06/30/20 09:00 Room Air 06/30/20 08:32 96 125/80 06/30/20 08:26 96 125/80 06/30/20 08:00 109 06/30/20 08:00 98.1 96 18 125/80 (95) 96 06/30/20 04:00 98.7 91 18 126/74 (91) 98 06/30/20 04:00 85 06/30/20 00:00 98.1 97 18 98/57 (71) 98 06/30/20 00:00 89 06/29/20 21:13 95 139/82 06/29/20 21:00 Room Air 06/29/20 20:00 98.7 95 18 139/82 (101) 99 06/29/20 20:00 100 06/29/20 18:10 96 128/72 06/29/20 16:00 98.6 94 20 128/72 (90) 100 06/29/20 16:00 96 Intake and Output 06/29/20 06/30/20 19:00 07:00 Intake Total 500 ml 820 ml Balance 500 ml 820 ml Intake Oral 450 ml 320 ml IV Total 50 ml 500 ml # Voids 3 3 # Bowel Movements 1 Laboratory Tests 06/30/20 08:50: White Blood Count 9.7, Red Blood Count 3.66L, Hemoglobin 10.7L, Hematocrit 33.1L , Mean Corpuscular Volume 90, Mean Corpuscular Hemoglobin 29.2, Mean Corpuscular Hemoglobin Concent 32.4, Red Cell Distribution Width 12.2, Platelet Count 305, Mean Platelet Volume 10.2H, Neutrophils (%) (Auto) 70.3, Lymphocytes (%) (Auto) 23.1, Monocytes (%) (Auto) 4.0, Eosinophils (%) (Auto) 1.8, Basophils (%) (Auto) 0.7, Sodium Level 138, Potassium Level 4.5, Chloride Level 112H, Carbon Dioxide Level 17L, Anion Gap 9, Blood Urea Nitrogen 44H, Creatinine 2.2H, Estimat Glomerular Filtration Rate 25.5, Glucose Level 313H, Calcium Level 8.5, Phosphorus Level 2.9, Total Bilirubin 0.2, Aspartate Amino Transf (AST/SGOT) 18, Alanine Aminotransferase (ALT/SGPT) 20, Alkaline Phosphatase 160H, Total Protein 5.9L, Albumin 1.7L, Globulin 4.2, Albumin/Globulin Ratio 0.4L Height (Feet): 5 Height (Inches): 2.00 Weight (Pounds): 139 General Appearance: no apparent distress Neck: normal alignment Cardiovascular: normal rate Respiratory/Chest: chest wall non-tender Abdomen: normal bowel sounds Pelvis: normal external exam Objective Current Medications Medications (Trade) Dose Ordered Sig/Augustine Route PRN Reason Start Time Stop Time Status Last Admin Dose Admin Acetaminophen (Tylenol) 500 mg Q4H PRN ORAL Mild Pain (Pain Scale 1-3) 06/27/20 01:30 07/27/20 01:29 06/27/20 20:59 Amlodipine Besylate (Norvasc) 5 mg BID ORAL 06/28/20 18:00 07/28/20 08:59 06/30/20 08:26 Aspirin (ASA) 81 mg DAILY ORAL 06/28/20 09:00 08/12/20 08:59 06/30/20 08:26 Atorvastatin Calcium (Lipitor) 80 mg BEDTIME ORAL 06/27/20 21:00 09/25/20 20:59 06/29/20 21:13 Clonidine HCl (Catapres Tab) 0.1 mg Q2H PRN ORAL For High Blood Pressure 06/28/20 13:15 09/26/20 13:14 Dextrose (Dextrose 50%) 25 ml Q30M PRN IV Hypoglycemia 06/27/20 06:30 5/11/21 06:29 Dextrose (Dextrose 50%) 50 ml Q30M PRN IV Hypoglycemia 06/27/20 06:30 09/25/20 06:29 Docusate Sodium (Colace) 100 mg THREE TIMES A DAY ORAL 06/27/20 13:00 07/27/20 12:59 06/30/20 08:25 Fish Oil (Fish Oil) 1,000 mg BID ORAL 06/27/20 18:00 07/27/20 17:59 06/30/20 08:25 Gadobutrol (Gadavist) 7.5 mmol NOW PRN IV Radiology Procedure 06/27/20 14:30 07/01/20 14:29 Insulin Aspart (NovoLOG) BEFORE MEALS AND HS SUBQ 06/27/20 06:30 09/25/20 06:29 06/30/20 11:47 Insulin Aspart (NovoLOG) 10 units NOVOTIAC SUBQ 06/29/20 11:50 09/25/20 06:29 06/30/20 11:48 Insulin Detemir (Levemir) 25 units DAILY SUBQ 06/29/20 09:00 09/25/20 08:59 06/30/20 08:31 Metoprolol Tartrate (Lopressor) 25 mg Q12HR ORAL 06/30/20 21:00 09/25/20 11:44 Pantoprazole (Protonix) 40 mg EVERY 12 HOURS ORAL 06/27/20 21:00 07/27/20 20:59 06/30/20 08:26 Assessment/Plan Problem List: (1) Hypertensive crisis ICD Codes: I16.9 - Hypertensive crisis, unspecified SNOMED: 103916373 (2) Hyperlipemia ICD Codes: E78.5 - Hyperlipidemia, unspecified SNOMED: 85275905 (3) Renal failure (ARF), acute on chronic ICD Codes: N17.9 - Acute kidney failure, unspecified; N18.9 - Chronic kidney disease, unspecified SNOMED: 988285903 (4) Hypertensive kidney disease ICD Codes: I12.9 - Hypertensive chronic kidney disease with stage 1 through stage 4 chronic kidney disease, or unspecified chronic kidney disease SNOMED: 32453946 (5) Diabetic nephropathy ICD Codes: E11.21 - Type 2 diabetes mellitus with diabetic nephropathy SNOMED: 71349822, 327299837 (6) Transient ischemic attack ICD Codes: G45.9 - Transient cerebral ischemic attack, unspecified SNOMED: 504259517 Status: progressing Assessment/Plan: increase Levemir to 30 units daily continue Novolog 10 units ac tid continue Novolog sliding scale ac hs she is cleared for DC home from diabetes stand point I offered prescriptions for insulin and diabetic supplies - she does not need it - had all the supplies she needs a home Celestino Levine MD Jun 30, 2020 15:20
[2020-06-30 16:00] VITALS: BP 144/90
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
--- NOTE | 2020-06-30 16:27 | General Progress Note ---
Subjective ROS Limited/Unobtainable: Yes Allergies: Coded Allergies: No Known Allergies (Unverified , 06/26/20) Objective Last 24 Hour Vital Signs Date Time Temp Pulse Resp B/P (MAP) Pulse Ox O2 Delivery O2 Flow Rate FiO2 06/30/20 12:00 108 06/30/20 12:00 97.7 110 18 151/91 (111) 97 06/30/20 09:00 Room Air 06/30/20 08:32 96 125/80 06/30/20 08:26 96 125/80 06/30/20 08:00 109 06/30/20 08:00 98.1 96 18 125/80 (95) 96 06/30/20 04:00 98.7 91 18 126/74 (91) 98 06/30/20 04:00 85 06/30/20 00:00 98.1 97 18 98/57 (71) 98 06/30/20 00:00 89 06/29/20 21:13 95 139/82 06/29/20 21:00 Room Air 06/29/20 20:00 98.7 95 18 139/82 (101) 99 06/29/20 20:00 100 06/29/20 18:10 96 128/72 Intake and Output 06/29/20 06/30/20 19:00 07:00 Intake Total 500 ml 820 ml Balance 500 ml 820 ml Intake Oral 450 ml 320 ml IV Total 50 ml 500 ml # Voids 3 3 # Bowel Movements 1 Laboratory Tests 06/30/20 08:50: White Blood Count 9.7, Red Blood Count 3.66L, Hemoglobin 10.7L, Hematocrit 33.1L , Mean Corpuscular Volume 90, Mean Corpuscular Hemoglobin 29.2, Mean Corpuscular Hemoglobin Concent 32.4, Red Cell Distribution Width 12.2, Platelet Count 305, Mean Platelet Volume 10.2H, Neutrophils (%) (Auto) 70.3, Lymphocytes (%) (Auto) 23.1, Monocytes (%) (Auto) 4.0, Eosinophils (%) (Auto) 1.8, Basophils (%) (Auto) 0.7, Sodium Level 138, Potassium Level 4.5, Chloride Level 112H, Carbon Dioxide Level 17L, Anion Gap 9, Blood Urea Nitrogen 44H, Creatinine 2.2H, Estimat Glomerular Filtration Rate 25.5, Glucose Level 313H, Calcium Level 8.5, Phosphorus Level 2.9, Total Bilirubin 0.2, Aspartate Amino Transf (AST/SGOT) 18, Alanine Aminotransferase (ALT/SGPT) 20, Alkaline Phosphatase 160H, Total Protein 5.9L, Albumin 1.7L, Globulin 4.2, Albumin/Globulin Ratio 0.4L Height (Feet): 5 Height (Inches): 2.00 Weight (Pounds): 139 Assessment/Plan Problem List: (1) Hypertensive crisis ICD Codes: I16.9 - Hypertensive crisis, unspecified SNOMED: 777348349 (2) Transient ischemic attack ICD Codes: G45.9 - Transient cerebral ischemic attack, unspecified SNOMED: 821283523 (3) Hypertensive kidney disease ICD Codes: I12.9 - Hypertensive chronic kidney disease with stage 1 through stage 4 chronic kidney disease, or unspecified chronic kidney disease SNOMED: 89289752 (4) Hyperlipemia ICD Codes: E78.5 - Hyperlipidemia, unspecified SNOMED: 22390791 (5) Renal failure (ARF), acute on chronic ICD Codes: N17.9 - Acute kidney failure, unspecified; N18.9 - Chronic kidney disease, unspecified SNOMED: 846968460 Status: progressing Assessment/Plan: monitor bp niddm sugar improving uncontrolled diabetes is improving r/o Silvana Gramajo MD Jun 30, 2020 16:27
--- NOTE | 2020-06-30 18:43 | NUR ---
NURSE NOTES: Pt asked primary nurse to remove IV line d/t being painful and itchy, explained risk and benefits, asked pt if she wanted primary nurse to start a new line on another site, pt stated that "she wants to take a break first" and will let nurse know if she's ready, explained importance of having an IV line for emergencies, she verbalized understanding. Will continue to monitor. Dr. Machado made aware.
--- NOTE | 2020-06-30 19:06 | NUR ---
NURSE NOTES: Received report from GILBERTO Bello. Pt is A/O x4 and verbally responsive. No SOB or acute distress notes. Pt has no pain at this time. Pt is ambulatory with steady gait. No SOB or acute distress noted. No pain noted. Pt has no IV site RN tried to insert another but was told she still need a break. Bed in lowest position and locked with side rails x2. Call light placed within reach. Will continue plan of care.
--- NOTE | 2020-06-30 19:14 | Consultation ---
DATE OF CONSULTATION: 06/27/2020 ENDOCRINOLOGY CONSULTATION CONSULTING PHYSICIAN: Celestino Levine M.D. REFERRING PHYSICIAN: Silvana Machado M.D. REASON FOR CONSULTATION: Diabetes management. HISTORY OF PRESENT ILLNESS: The patient is a 35-year-old female with a history of insulin-dependent diabetes, presented to the emergency department with facial numbness and right arm and leg pain for 3 days. I was called to manage diabetes. Glucose is elevated. PAST MEDICAL HISTORY: Diabetes. PAST SURGICAL HISTORY: None. REVIEW OF SYSTEMS: As per HPI. FAMILY HISTORY: Noncontributory. ALLERGIES TO MEDICATIONS: None. PHYSICAL EXAMINATION: VITAL SIGNS: BP 133/80, pulse of 80, temperature 98.2, and respiratory rate 18. HEENT: Pupils are equal and reactive to light. Sclerae anicteric. NECK: No JVD. No thyromegaly. LUNGS: Clear. HEART: Regular rate and rhythm. ABDOMEN: Positive bowel sounds. EXTREMITIES: No clubbing, cyanosis, or edema. LABORATORY DATA: WBC 10, hemoglobin 12, hematocrit 38, and platelets of 334. Sodium 137, potassium 4.2, chloride 106, bicarb 21, BUN 49, creatinine 1.9, glucose of 373. A1c of 11.4 and TSH of 2. DIAGNOSES: 1. Diabetes, out of control. 2. Facial numbness, rule out CVA. 3. Hypertensive crisis. PLAN: 1. Start Levemir 18 units daily. 2. Start NovoLog 6 units before each meal. 3. NovoLog sliding scale before meals and at bedtime. 4. Further adjustment according to blood glucose values. 5. Hypoglycemia protocol is in order. Thank you, Dr. Machado, for the courtesy of this consultation. Celestino Levine M.D. DR: Jillian JOB#: [id number] CC: BECCA
--- NOTE | 2020-06-30 19:26 | NUR ---
NURSE HAND-OFF REPORT: Important Events on Shift:[blood sugar monitoring, safety and comfort, IV fluids] Patient Status: [stable] Diet: [ccho low] Pending Orders: [] Pending Results/Labs:[] Pending MD notification:[] Latest Vital Signs: Temperature 98.2 , Pulse 99 , B/P 144 /90 , Respiratory Rate 18 , O2 SAT 97 , , O2 Flow Rate . Vital Sign Comment: [] EKG Rhythm: Sinus Rhythm Rhythm change?: N MD Notified?: -Dr. Jeannette MCKEON Response: Latest Bell Fall Score: 20 Fall Risk: Low Risk Safety Measures: Call light Within Reach, Bed Alarm Zone 2, Side Rails Side Rails x2, Bed position Low and Locked. Fall Precautions: Patient Fall Education Report given to [GILBERTO Navarro].
[2020-06-30 20:00] VITALS: BP 132/75
[2020-06-30] MEDS ORDERED: Metoprolol Tartrate 12.5mg TAB ORAL SCH (21:00)
[2020-06-30] MEDS: Atorvastatin 80mg tab ORAL SCH (21:12)
[2020-06-30] MEDS: Metoprolol Tartrate 50mg tab ORAL SCH (21:13)
[2020-06-30] MEDS: Acetaminophen 500mg (ES) tab ORAL PRN (22:32)
[2020-07-01] VITALS: BP 110/67
--- NOTE | 2020-07-01 | NUR ---
NURSE NOTES: Attempted to place a new IV line in pt but she refused. Will continue to try and attempt to place another line throughout the night.
[2020-07-01 04:00] VITALS: BP_SYST 115; BP_SYST 175; BP_DIAS 63; BP_DIAS 93
[2020-07-01] MEDS: NovoLOG Insulin Flexpen SUBQ SCH ×4 (05:48→11:30)
--- NOTE | 2020-07-01 06:38 | NUR ---
NURSE HAND-OFF REPORT: Important Events on Shift: BS continues to stay in 200-300 Patient Status: Stable Diet: CCHO Low Pending Orders: Pending Results/Labs: Pending MD notification: Latest Vital Signs: Temperature 98.8 , Pulse 88 , B/P 115 /63 , Respiratory Rate 22 , O2 SAT 97 , , O2 Flow Rate . Vital Sign Comment: EKG Rhythm: Sinus Rhythm Rhythm change?: N MD Notified?: -Dr. Jeannette MCKEON Response: Latest Bell Fall Score: 20 Fall Risk: Low Risk Safety Measures: Call light Within Reach, Bed Alarm Zone 2, Side Rails Side Rails x2, Bed position Low and Locked. Fall Precautions: Patient Fall Education Report given to Kristal.
--- NOTE | 2020-07-01 07:42 | NUR ---
NURSE NOTES: Patient received from Melanie MACIAS. Patient awake alert and oriented x4. Saturating well on room air. no c/o pain and no s/s of respiratory distress. No IV site in place, patient refusing per morning nurse and md aware per morning nurse. Bed in lowest position and locked. Call light and bedside table within reach.
[2020-07-01 08:00] VITALS: BP 137/78
[2020-07-01] MEDS: Aspirin Baby 81mg ORAL SCH (08:55)
[2020-07-01] MEDS: Docusate 100mg cap ORAL SCH ×3 (08:55→13:00)
[2020-07-01] MEDS: Metoprolol Tartrate 50mg tab ORAL SCH (08:56)
[2020-07-01] MEDS ORDERED: Levemir Flexpen SUBQ SCH (09:00)
--- NOTE | 2020-07-01 11:36 | General Progress Note ---
Subjective Allergies: Coded Allergies: No Known Allergies (Unverified , 06/26/20) All Systems: reviewed and negative except above Subjective events noted interval notes reviewed glucose values improved but still elevated Item Value Date Time Bedside Blood Glucose 248 mg/dl H 07/01/20 1130 Bedside Blood Glucose 271 mg/dl H 07/01/20 0904 Bedside Blood Glucose 378 mg/dl H 07/01/20 0608 Bedside Blood Glucose 274 mg/dl H 06/30/20 2114 Bedside Blood Glucose 268 mg/dl H 06/30/20 1655 Bedside Blood Glucose 280 mg/dl H 06/30/20 1148 Objective Last 24 Hour Vital Signs Date Time Temp Pulse Resp B/P (MAP) Pulse Ox O2 Delivery O2 Flow Rate FiO2 07/01/20 09:00 Room Air 07/01/20 08:56 102 137/78 07/01/20 08:56 102 137/78 07/01/20 08:00 101 07/01/20 08:00 97.7 102 19 137/78 (97) 99 07/01/20 04:00 92 07/01/20 04:00 98.8 88 22 115/63 (80) 97 07/01/20 04:00 98.8 88 22 175/93 (120) 97 07/01/20 00:00 104 07/01/20 00:00 98.9 82 18 110/67 (81) 97 06/30/20 21:13 94 140/90 06/30/20 21:00 Room Air 06/30/20 20:00 98.8 98 17 132/75 (94) 97 06/30/20 20:00 102 06/30/20 17:05 99 144/90 06/30/20 16:00 85 06/30/20 16:00 98.2 99 18 144/90 (108) 97 06/30/20 12:00 108 06/30/20 12:00 97.7 110 18 151/91 (111) 97 Intake and Output 06/30/20 07/01/20 19:00 07:00 Intake Total 400 ml 720 ml Balance 400 ml 720 ml Intake Oral 400 ml 720 ml # Voids 3 2 # Bowel Movements 1 Height (Feet): 5 Height (Inches): 2.00 Weight (Pounds): 139 General Appearance: no apparent distress Neck: normal alignment Cardiovascular: regular rhythm Respiratory/Chest: lungs clear Abdomen: normal bowel sounds Pelvis: normal external exam Objective Current Medications Medications (Trade) Dose Ordered Sig/Augustine Route PRN Reason Start Time Stop Time Status Last Admin Dose Admin Acetaminophen (Tylenol) 500 mg Q4H PRN ORAL Mild Pain (Pain Scale 1-3) 06/27/20 01:30 07/27/20 01:29 06/30/20 22:32 Amlodipine Besylate (Norvasc) 5 mg BID ORAL 06/28/20 18:00 07/28/20 08:59 07/01/20 08:56 Aspirin (ASA) 81 mg DAILY ORAL 06/28/20 09:00 08/12/20 08:59 07/01/20 08:55 Atorvastatin Calcium (Lipitor) 80 mg BEDTIME ORAL 06/27/20 21:00 09/25/20 20:59 06/30/20 21:12 Clonidine HCl (Catapres Tab) 0.1 mg Q2H PRN ORAL For High Blood Pressure 06/28/20 13:15 09/26/20 13:14 Dextrose (Dextrose 50%) 25 ml Q30M PRN IV Hypoglycemia 06/27/20 06:30 09/25/20 06:29 Dextrose (Dextrose 50%) 50 ml Q30M PRN IV Hypoglycemia 06/27/20 06:30 09/25/20 06:29 Docusate Sodium (Colace) 100 mg THREE TIMES A DAY ORAL 06/27/20 13:00 07/27/20 12:59 06/30/20 08:25 Fish Oil (Fish Oil) 1,000 mg BID ORAL 06/27/20 18:00 07/27/20 17:59 07/01/20 08:55 Gadobutrol (Gadavist) 7.5 mmol NOW PRN IV Radiology Procedure 06/27/20 14:30 07/01/20 14:29 Insulin Aspart (NovoLOG) BEFORE MEALS AND HS SUBQ 06/27/20 06:30 09/25/20 06:29 07/01/20 11:29 Insulin Aspart (NovoLOG) 10 units NOVOTIAC SUBQ 06/29/20 11:50 09/25/20 06:29 07/01/20 11:30 Insulin Detemir (Levemir) 30 units DAILY SUBQ 07/01/20 09:00 09/25/20 08:59 07/01/20 09:04 Metoprolol Tartrate (Lopressor) 50 mg Q12HR ORAL 06/30/20 21:00 09/28/20 20:59 07/01/20 08:56 Pantoprazole (Protonix) 40 mg EVERY 12 HOURS ORAL 06/27/20 21:00 07/27/20 20:59 07/01/20 08:55 Assessment/Plan Problem List: (1) Hypertensive crisis ICD Codes: I16.9 - Hypertensive crisis, unspecified SNOMED: 487643647 (2) Hyperlipemia ICD Codes: E78.5 - Hyperlipidemia, unspecified SNOMED: 35014077 (3) Renal failure (ARF), acute on chronic ICD Codes: N17.9 - Acute kidney failure, unspecified; N18.9 - Chronic kidney disease, unspecified SNOMED: 744475426 (4) Hypertensive kidney disease ICD Codes: I12.9 - Hypertensive chronic kidney disease with stage 1 through stage 4 chronic kidney disease, or unspecified chronic kidney disease SNOMED: 40612090 (5) Diabetic nephropathy ICD Codes: E11.21 - Type 2 diabetes mellitus with diabetic nephropathy SNOMED: 28283915, 587629306 (6) Transient ischemic attack ICD Codes: G45.9 - Transient cerebral ischemic attack, unspecified SNOMED: 484325585 Status: progressing Assessment/Plan: increase Levemir to 36 units daily increase Novolog to 12 units ac tid continue Novolog sliding scale ac hs she is cleared for DC home from diabetes stand point I offered prescriptions for insulin and diabetic supplies - she does not need it - had all the supplies she needs a home Celestino Levine MD Jul 01, 2020 11:36
[2020-07-01] MEDS ORDERED: NovoLOG Insulin Flexpen SUBQ SCH (11:50)
[2020-07-01 12:00] VITALS: BP 129/67
--- NOTE | 2020-07-01 12:12 | NUR ---
NURSE NOTES: Notified Dr. wong of patient wanting to go home. Notified also of Dr. Hare and Dr. Levine's clearance for discharge.
--- NOTE | 2020-07-01 13:30 | NUR ---
NURSE NOTES: Discharge orders received from Dr. Machado, verified and carried out.
--- NOTE | 2020-07-01 13:51 | Nephrology Progress Note ---
Assessment/Plan Problem List: (1) Renal failure (ARF), acute on chronic (2) Diabetic nephropathy (3) Hypertensive kidney disease (4) Hyperlipemia Assessment Acute on chronic renal failure Diabetic nephropathy Hypertensive crisis Transient ischemic attack Hyperlipemia Plan July 01: No CHEM panel drawn today. Medication list reviewed. Discussed with RN. Patient is stable for discharge from renal standpoint of view. Patient needs to follow-up with her PMD/sample supervisor as an outpatient on a regular basis. June 30. Serum creatinine 2.2. IV fluids stopped. Lopressor dose increased. Continue as is. June 29: Serum creatinine 2.1. High cholesterol and triglycerides persist. Continue per current management. Blood pressure controlled. June 28: Blood pressure better controlled. No CHEM panel today. Will check lab tomorrow. Continue per consultants. Slow hydration Kidney ultrasound Blood pressure medication Keep the blood sugar in check Lipitor, fish oil Monitor renal parameters and electrolytes Aspirin Subjective ROS Limited/Unobtainable: No Constitutional: Reports: other - Anxious to go home Objective Objective Last 24 Hour Vital Signs Date Time Temp Pulse Resp B/P (MAP) Pulse Ox O2 Delivery O2 Flow Rate FiO2 07/01/20 12:00 97.9 96 18 129/67 (87) 96 07/01/20 12:00 96 07/01/20 09:00 Room Air 07/01/20 08:56 102 137/78 07/01/20 08:56 102 137/78 07/01/20 08:00 101 07/01/20 08:00 97.7 102 19 137/78 (97) 99 07/01/20 04:00 92 07/01/20 04:00 98.8 88 22 115/63 (80) 97 07/01/20 04:00 98.8 88 22 175/93 (120) 97 07/01/20 00:00 104 07/01/20 00:00 98.9 82 18 110/67 (81) 97 06/30/20 21:13 94 140/90 06/30/20 21:00 Room Air 06/30/20 20:00 98.8 98 17 132/75 (94) 97 06/30/20 20:00 102 06/30/20 17:05 99 144/90 06/30/20 16:00 85 06/30/20 16:00 98.2 99 18 144/90 (108) 97 Intake and Output 0 06/30/20 07/01/20 19:00 07:00 Intake Total 400 ml 720 ml Balance 400 ml 720 ml Intake Oral 400 ml 720 ml # Voids 3 2 # Bowel Movements 1 Current Medications Medications (Trade) Dose Ordered Sig/Augustine Route PRN Reason Start Time Stop Time Status Last Admin Dose Admin Acetaminophen (Tylenol) 500 mg Q4H PRN ORAL Mild Pain (Pain Scale 1-3) 06/27/20 01:30 07/27/20 01:29 06/30/20 22:32 Amlodipine Besylate (Norvasc) 5 mg BID ORAL 06/28/20 18:00 07/28/20 08:59 07/01/20 08:56 Aspirin (ASA) 81 mg DAILY ORAL 06/28/20 09:00 08/12/20 08:59 07/01/20 08:55 Atorvastatin Calcium (Lipitor) 80 mg BEDTIME ORAL 06/27/20 21:00 09/25/20 20:59 06/30/20 21:12 Clonidine HCl (Catapres Tab) 0.1 mg Q2H PRN ORAL For High Blood Pressure 06/28/20 13:15 09/26/20 13:14 Dextrose (Dextrose 50%) 25 ml Q30M PRN IV Hypoglycemia 06/27/20 06:30 09/25/20 06:29 Dextrose (Dextrose 50%) 50 ml Q30M PRN IV Hypoglycemia 06/27/20 06:30 09/25/20 06:29 Docusate Sodium (Colace) 100 mg THREE TIMES A DAY ORAL 06/27/20 13:00 07/27/20 12:59 06/30/20 08:25 Fish Oil (Fish Oil) 1,000 mg BID ORAL 06/27/20 18:00 07/27/20 17:59 07/01/20 08:55 Gadobutrol (Gadavist) 7.5 mmol NOW PRN IV Radiology Procedure 06/27/20 14:30 07/01/20 14:29 Insulin Aspart (NovoLOG) BEFORE MEALS AND HS SUBQ 06/27/20 06:30 09/25/20 06:29 07/01/20 11:29 Insulin Aspart (NovoLOG) 12 units NOVOTIAC SUBQ 07/01/20 11:50 09/25/20 06:29 Insulin Detemir (Levemir) 36 units DAILY SUBQ 07/02/20 09:00 09/25/20 08:59 Metoprolol Tartrate (Lopressor) 50 mg Q12HR ORAL 06/30/20 21:00 09/28/20 20:59 07/01/20 08:56 Pantoprazole (Protonix) 40 mg EVERY 12 HOURS ORAL 06/27/20 21:00 07/27/20 20:59 07/01/20 08:55 No CHEM panel drawn today Height (Feet): 5 Height (Inches): 2.00 Weight (Pounds): 139 General Appearance: no apparent distress Cardiovascular: tachycardia Respiratory/Chest: lungs clear Abdomen: soft Sean Hare MD Jul 01, 2020 13:51
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
[2020-07-01 16:00] VITALS: BP 142/79
--- NOTE | 2020-07-01 16:13 | NUR ---
NURSE NOTES: Patient vital signs WNL. patient monitor removed, patient belongings accounted for. Patient packet given to patient and signed discharge papers. Patient accompanied by cousin with private vehicle.
[2020-07-02] MEDS ORDERED: Levemir Flexpen SUBQ SCH (09:00)
--- NOTE | 2020-07-02 19:43 | Cardiology Report ---
APPROVED REPORT EXAM: Two-dimensional and M-mode echocardiogram with Doppler and color Doppler. INDICATION Hypertension M-Mode DIMENSIONS IVSd1.1 (0.7-1.1cm)Left Atrium (MM)3.1 (1.6-4.0cm) LVDd3.6 (3.5-5.6cm)Aortic Root2.8 (2.0-3.7cm) PWd1.1 (0.7-1.1cm)Aortic Cusp Exc.2.0 (1.5-2.0cm) IVSs1.5 cmEPSS0.6 (>1.0cm) LVDs1.8 (2.5-4.0cm) PWs1.8 cm <Conclusion> Normal left ventricular chamber size, systolic function and wall motion. Left ventricular ejection fraction estimated to be 65 %. No evidence of left ventricular hypertrophy. Anterior Echo-free space, may be due to pericardial fat or effusion. All other cardiac chamber sizes are within normal limits. Focal aortic valve sclerosis with adequate cusp excursion. Thickened mitral valve leaflets with normal excursion. Mitral annulus and aortic root calcification. Pulmonic valve not well visualized. Normal tricuspid valve structure. IVC at normal size with physiologic collapse. A color flow and spectral Doppler study was performed and revealed: Trace aortic regurgitation. Moderate mitral regurgitation. Mitral inflow indicate normal left ventricular diastolic function. Trace tricuspid regurgitation. Tricuspid systolic velocities suggests peak right ventricular systolic pressure of 11 mmHg. Trace pulmonic regurgitation present.
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
== END 2020-07-01 16:00 | disposition home or self-care (01) | DRG 47 ==
LOC: EMR 22:05 → 2E 06-27 00:07 → EDBEDREQ 06-27 00:33
DX: G45.9 Transient cerebral ischemic attack, unspecified (principal); N17.9 Acute kidney failure, unspecified; G51.0 Bell's palsy; E11.22 Type 2 diabetes mellitus with diabetic chronic kidney disease; I12.9 Hypertensive chronic kidney disease with stage 1 through stage 4 chronic kidney disease, or unspecified chronic kidney disease; N18.9 Chronic kidney disease, unspecified; E78.49 Other hyperlipidemia; I16.9 Hypertensive crisis, unspecified; Z86.718 Personal history of other venous thrombosis and embolism; Z87.891 Personal history of nicotine dependence; K21.9 Gastro-esophageal reflux disease without esophagitis; E78.1 Pure hyperglyceridemia; E11.40 Type 2 diabetes mellitus with diabetic neuropathy, unspecified; Z79.4 Long term (current) use of insulin; Z91.14 Patient's other noncompliance with medication regimen
CPT/HCPCS: 36415; 70450; 70544; 70547; 70553; 76770; 80053; 80061; 80307; 81003; 81025; 82550; 82977; 83036; 83735; 83880; 84100; 84443; 84484; 84550; 85025; 85610; 85651; 85730; 86039; 86140; 93005; 93306; 93970; 96361; 96374; 99285; A9585; J1815; J7030; S5561